=== PATIENT | female | born 1980 | race African-American/Black ===

== ENCOUNTER → 2018-09-19 08:43 | Outpatient (CLI) | payer MEDICARE ==
[~2018-09-19] VITALS: Ht 160 cm; Wt 153.3 kg
[2018-09-19 10:01] VITALS: Ht 160 cm; Wt 153.3 kg
== END | disposition home or self-care (01) ==
LOC: D.FANS 08:43
PROVIDERS: ATTEND Surgery
DX: E66.01 Morbid (severe) obesity due to excess calories (principal)

== ENCOUNTER 2018-10-30 09:34 | Outpatient (CLI) | payer MEDICARE ==
[2018-09-19 10:01] VITALS: BMI 59.8
[2018-11-07 07:25] VITALS: BMI 61.8
== END 2018-10-30 10:33 | disposition home or self-care (01) ==
LOC: D.OPS 09:34
PROVIDERS: ATTEND Surgery
DX: E66.01 Morbid (severe) obesity due to excess calories (principal)

== ENCOUNTER 2018-11-07 05:58 | Day surgery (SDC) | payer MEDICARE ==
[~2018-11-07] VITALS: Ht 157.5 cm; Wt 153.2 kg
[2018-11-07] MEDS ORDERED: ALDACTONE25 MG PO (07:16)
[2018-11-07] MEDS ORDERED: FUROSEMIDE40 MG PO (07:16)
[2018-11-07] MEDS ORDERED: METOPROLOL TART50 MG PO (07:17)
[2018-11-07] MEDS ORDERED: HYDROCODON-ACE1 EA10 PO ×2 (07:17)
[2018-11-07] MEDS ORDERED: NORVASC5 MG PO (07:18)
[2018-11-07] MEDS ORDERED: ZITHROMAX250 MG PO (07:18)
[2018-11-07 07:25] VITALS: BP 168/95; Ht 157.5 cm; Wt 153.2 kg
[2018-11-07 07:36] LABS: HCG URINE NEGATIVE (NEGATIVE)
[2018-11-07] MEDS ORDERED: GLUCOPHAGE1000 MG PO (07:37)
[2018-11-07 07:46] LABS: HEMATOCRIT 36.8 % (36.0-48.0); HEMOGLOBIN 11.6 g/dL (12-16); MCH 23.9 pg (26.0-34.0); MCHC 31.5 g/dL (31.0-37.0); MCV 75.7 fL (80.0-100.0); MEAN PLATELET VOLUME 8.6 fL (7.4-10.4); RBC 4.86 10x6/uL (4.00-5.40); RDW 14.2 % (11.5-14.5); WBC 9.6 10x3/uL (4.8-10.8)
[2018-11-07 07:53] LABS: ANION GAP 9.2 mmol/L (8-16); CALCIUM 9.4 mg/dL (8.5-10.1); CARBON DIOXIDE 31.5 mmol/L (21.0-32.0); CREATININE - SERUM 1.1 mg/dL (0.6-1.3); POTASSIUM - SERUM 3.7 mmol/L (3.5-5.1)
== END 2018-11-07 09:40 | disposition home or self-care (01) ==
LOC: D.OPS 05:58
PROVIDERS: Anesthesiology; ATTEND Surgery
DX: K31.9 Disease of stomach and duodenum, unspecified (principal); K29.70 Gastritis, unspecified, without bleeding; K44.9 Diaphragmatic hernia without obstruction or gangrene; K21.9 Gastro-esophageal reflux disease without esophagitis; E66.01 Morbid (severe) obesity due to excess calories; Z68.44 Body mass index [BMI] 60.0-69.9, adult; Z01.812 Encounter for preprocedural laboratory examination

== ENCOUNTER 2019-01-04 10:28 | Inpatient (IN) | payer MEDICARE ==
[~2019-01-04] VITALS: Ht 157.5 cm; Wt 153.2 kg
[~2019-01-04 10:28] MED LIST: ALDACTONE25 MG PO; FUROSEMIDE40 MG PO; GLUCOPHAGE1000 MG PO; HYDROCODON-ACE1 EA10 PO; METOPROLOL TART50 MG PO; NORVASC5 MG PO; ZITHROMAX250 MG PO
[2019-01-25] MEDS ORDERED: CYCLOBENZAPRINE10 MG PO (08:52)
[2019-01-25 09:37] LABS: HEMOGLOBIN 11.6 g/dL (12-16); MCH 24.1 pg (26.0-34.0); MCHC 32.2 g/dL (31.0-37.0); MCV 74.8 fL (80.0-100.0); MEAN PLATELET VOLUME 8.8 fL (7.4-10.4); RBC 4.81 10x6/uL (4.00-5.40); RDW 14.4 % (11.5-14.5); WBC 11.2 10x3/uL (4.8-10.8)
[2019-01-25 09:38] LABS: ANION GAP 9.7 mmol/L (8-16); CALCIUM 8.8 mg/dL (8.5-10.1); CARBON DIOXIDE 28.4 mmol/L (21.0-32.0); CREATININE - SERUM 1.2 mg/dL (0.6-1.3); POTASSIUM - SERUM 4.1 mmol/L (3.5-5.1)
[2019-01-28] VITALS (10 sets, daily range): BP systolic 120–169; BP diastolic 58–84; Ht 157.5 cm; Wt 153.2 kg
[2019-01-28] MEDS ORDERED: GLIMEPIRIDE2 MG PO (08:44)
[2019-01-28 09:15] LABS: HCG URINE NEGATIVE (NEGATIVE)
--- NOTE | 2019-01-28 14:15 | NUR ---
PATIENT IN BED WITH IV INTACT. NO COMPLAINTS OR SIGNS OF DISTRESS. FAMILY AT BEDSIDE. EATING A FEW ICE CHIPS AT THIS TIME. VS STABLE. SATS UP TO 99 WHILE AWAKE. PATIENT HAS APNEA WHILE SLEEPING. STATES SHE HAS NO PAIN AT THIS TIME. CALL LIGHT WITHIN REACH. BSCDS ON AND WORKING.
--- NOTE | 2019-01-28 15:45 | NUR ---
PATIENT SITTING UP IN CHAIR AT THIS TIME WITH NO COMPLAINTS OR SIGNS OF DISTRESS. STILL SLEEPY. STATES NO PAIN. IV INTACT. FAMILY AT BEDSIDE. VS STABLE. CALL LIGHT WITHIN REACH. LAP INCISIONS CLEAN AND DRY.
--- NOTE | 2019-01-28 17:10 | NUR ---
PATIENT SITTING UP IN CHAIR. DRANK 30 ML OF CHICKEN BROTH AND 30 ML OF APPLE JUICE 30 MINUTES APART WITH NO PROBLEMS. IV INTACT. GAVE PATIENT IS AND EXPLAINED TO USE 10 X'S / HR WHILE AWAKE. PATIENT DEMONSTRATED BACK USE. STATES NO PAIN AT THIS TIME. FAMILY AT BEDSIDE. CALL LIGHT WITHIN REACH.
--- NOTE | 2019-01-28 18:05 | NUR ---
PATIENT TO ROOM AT THIS TIME. VS STABLE. NO COMPLAINTS OR SIGNS OF DISTRESS. STILL TIRED FROM ANESTHESIA. IV INTACT. O2 94 ON 7 L HF NC. WILL CONTINUE TO MONITOR.
--- NOTE | 2019-01-28 18:13 | NUR ---
PATIENT SITTING UP IN CHAIR. WITH NO COMPLAINTS OR SIGNS OF DISTRESS. IV INTACT. CALL LIGHT WITHIN REACH. EYES CLOSED RESTING QUIETLY.
--- NOTE | 2019-01-28 20:00 | NUR ---
ASSESSMENT PER FLOWSHEET. PT SITTING UPRIGHT IN CHAIR AT BEDSIDE. IV PATENT RT AC OF LR AT 100CC'S/HR SITE CLEAR. O2 ON AT HIGH FLOW 7L/M. LAP SITES TO ABDOMEN X5 C/D/I. SCD'S OFF. PT TAKING 30ML FLUID PO Q30 MIN. PT USING IS.
--- NOTE | 2019-01-28 20:30 | NUR ---
AMBULATED IN HALLWAY X3 LAPS TOLERATED WELL.
--- NOTE | 2019-01-28 21:15 | NUR ---
MEDS GIVEN PER MAR.
--- NOTE | 2019-01-28 23:00 | NUR ---
AMBULATED X2 MORE LAPS IN HALLWAY.
[2019-01-29 01:12] VITALS: BP 106/77
[2019-01-29 04:56] VITALS: BP 154/74
[2019-01-29 05:13] LABS: BASOPHILS 0.1 % (0-2); EOSINOPHILS 0.7 % (0-7); HEMATOCRIT 35.7 % (36.0-48.0); HEMOGLOBIN 11.1 g/dL (12-16); IMMATURE GRANULOCYTES 0.4 % (0-5); LYMPHOCYTES 18.8 % (15-50); MCH 23.7 pg (26.0-34.0); MCHC 31.1 g/dL (31.0-37.0); MCV 76.1 fL (80.0-100.0); MEAN PLATELET VOLUME 8.9 fL (7.4-10.4); MONOCYTES 6.6 % (2-11); NEUTROPHILS 73.4 % (40-80); PLATELET COUNT 443 10x3/uL (130-400); RBC 4.69 10x6/uL (4.00-5.40); RDW 14.5 % (11.5-14.5); WBC 10.5 10x3/uL (4.8-10.8)
[2019-01-29 05:44] LABS: ALBUMIN 2.7 g/dL (3.4-5.0); ANION GAP 13.8 mmol/L (8-16); BILIRUBIN - TOTAL 0.22 mg/dL (0.2-1.3); CALCIUM 8.7 mg/dL (8.5-10.1); CARBON DIOXIDE 25.5 mmol/L (21.0-32.0); CREATININE - SERUM 1.3 mg/dL (0.6-1.3); POTASSIUM - SERUM 4.3 mmol/L (3.5-5.1)
--- NOTE | 2019-01-29 08:30 | NUR ---
ASSESSMENT PER FLOW SHEET. PT IS WITHOUT DISTRESS.CALL LIGHT IN REACH.
[2019-01-29 08:31] VITALS: BP 180/97
--- NOTE | 2019-01-29 09:08 | MORECARE ---
CASE MANAGEMENT DISCHARGE SUMMARY PATIENT: SHANTI ARGUETA UNIT: [id number] ADM DATE: 01/28/19 AGE: 38 : 82 SEX: F ROOM/BED: D.2232 AUTHOR: KATHI,DOC PHYSICIAN: REFERRING PHYSICIAN: TAMI ROMERO MD DATE OF SERVICE: 01/29/19 Discharge Plan Patient Name: SHANTI ARGUETA Facility: [facility]:[place] : 1980 Planned Disposition: Home Anticipated Discharge Date: 01/29/19 Discharge Date: Expected LOS: 1 Initial Reviewer: [email or web address] Initial Review Date: 01/28/2019 Generated: 01/29/19 10:07 am Comments DCP- Discharge Planning Updated by [email or web address]: Delaney Bush on 01/29/19 8:[address] DC PLAN: Return home with significant other independently. ANTICIPATED DC NEEDS: Denied dc needs at this time. CM met with patient to complete initial dc planning assessment. CM educated patient on the CM role and verbal consent given by patient to complete assessment. CM verified patient's address, phone number, and emergency contact phone numbers. Patient lives at home with her significant other independently. At discharge patient plans to return home and feels this is a safe discharge. CM discussed availability of home health, rehab services, and medical equipment. Patient denied known discharge needs at this time. Patient reports her mother will transport her home at time of discharge. CM will continue to follow and will assist as needed with dc plans/needs. Delaney Bush RN, [facility] DCPIA - Discharge Planning Initial Assessment Updated by [email or web address]: Delaney Bush on 01/29/19 9:06 am * Is the patient Alert and Oriented? Yes * How many steps to enter\exit or inside your home? None * PCP Dr. Racheal [facility] * [facility] * Preadmission Environment Home with Family * ADLs Independent * Equipment Glucometer * List name and contact numbers for known caregivers / representatives who currently or will assist patient after discharge: Alyssia Argueta - mother - [phone] * Verbal permission to speak to the caregivers and representatives has been obtained from the patient. Yes * Community resources currently utilized None * Additional services required to return to the preadmission environment? No * Can the patient safely return to the preadmission environment? Yes * Has this patient been hospitalized within the prior 30 days at any hospital? No Patient Name: SHANTI ARGUETA Page [id number] at 0908 All edits/amendments must be made on the electronic document DICTATION DATE: 01/29/19906 EVP OF [employer]ODUCTS [employer] FOUNDER: SONAL 01/29/19906 RPT#: [id number] DC DATE: STATUS: ADM IN [facility] [address] [place] [address] END OF REPORT
[2019-01-29] MEDS ORDERED: HYDROCODON-ACE1 EAC7 PO (09:33)
--- NOTE | 2019-01-29 12:00 | NUR ---
WILL DC AFTER MOTHER GETS OFF WORK TODAY. PT STATES SOMETIME AFTER 1500
[2019-01-29 12:27] VITALS: BP 175/85
--- NOTE | 2019-01-29 13:38 | NUR ---
Nutrition follow-up: Received consult for post-bariatric diet instruction. Pt was instructed on pre/post bariatric diet in September 2018. RDN reviewed clear liquid/full liquid diet. Reviewed appropriate liquids and appropriate protein supplements. Answered all pts questions. Pt voices understanding of post-op diet restrictions and progression. Provided pt with printed diet handouts. THank you for the consult.
[2019-01-29 16:37] VITALS: BP 177/95
--- NOTE | 2019-01-30 09:05 | MORECARE ---
CASE MANAGEMENT DISCHARGE SUMMARY PATIENT: SHANTI ARGUETA UNIT: [id number] ADM DATE: 01/28/19 AGE: 38 : 82 SEX: F ROOM/BED: D.2232 AUTHOR: KATHI,DOC PHYSICIAN: REFERRING PHYSICIAN: TAMI ROMERO MD DATE OF SERVICE: 01/30/19 Discharge Plan Patient Name: SHANTI ARGUETA Facility: [facility]:[place] : 1980 Planned Disposition: Home Anticipated Discharge Date: 01/29/19 Discharge Date: 01/29/2019 Expected LOS: 1 Initial Reviewer: [email or web address] Initial Review Date: 01/28/2019 Generated: 01/30/19 10:05 am DCP- Discharge Planning Updated by [email or web address]: Delaney Bush on 01/29/19 8:[address] DC PLAN: Return home with significant other independently. ANTICIPATED DC NEEDS: Denied dc needs at this time. CM met with patient to complete initial dc planning assessment. CM educated patient on the CM role and verbal consent given by patient to complete assessment. CM verified patient's address, phone number, and emergency contact phone numbers. Patient lives at home with her significant other independently. At discharge patient plans to return home and feels this is a safe discharge. CM discussed availability of home health, rehab services, and medical equipment. Patient denied known discharge needs at this time. Patient reports her mother will transport her home at time of discharge. CM will continue to follow and will assist as needed with dc plans/needs. Delaney Bush RN, [facility] DCPIA - Discharge Planning Initial Assessment Updated by [email or web address]: Delaney Bush on 01/29/19 9:06 am * Is the patient Alert and Oriented? Yes * How many steps to enter\exit or inside your home? None * PCP Dr. Racheal Chapa * [facility] * Preadmission Environment Home with Family * ADLs Independent * Equipment Glucometer * List name and contact numbers for known caregivers / representatives who currently or will assist patient after discharge: Alyssia Argueta - mother - [phone] * Verbal permission to speak to the caregivers and representatives has been obtained from the patient. Yes * Community resources currently utilized None * Additional services required to return to the preadmission environment? No * Can the patient safely return to the preadmission environment? Yes * Has this patient been hospitalized within the prior 30 days at any hospital? No Last DP export: 01/29/19 8:08 a Patient Name: SHANTI ARGUETA Page [id number] at 0905 All edits/amendments must be made on the electronic document DICTATION DATE: 01/30/19904 PACKAGING SALES CONSULTANT: SONAL 01/30/19904 RPT#: [id number] DC DATE:01/29/19 STATUS: DIS IN [facility] [address] [place] [address] END OF REPORT
== END 2019-01-29 18:37 | disposition home or self-care (01) | DRG 621 ==
LOC: UNDOADMIN 01-24 09:15 → D.SDCHOLD 01-24 09:15 → D.MS 01-28 13:44
PROVIDERS: Anesthesiology; ADMIT Surgery; ATTEND Surgery
PROC: 0DB64Z3 Excision of Stomach, Percutaneous Endoscopic Approach, Vertical (ICD-10-PCS; principal; 2019-01-28 10:15)
DX: E66.01 Morbid (severe) obesity due to excess calories (principal); Z68.44 Body mass index [BMI] 60.0-69.9, adult; I10 Essential (primary) hypertension; E11.9 Type 2 diabetes mellitus without complications; M19.90 Unspecified osteoarthritis, unspecified site

== ENCOUNTER → 2019-04-30 11:41 | Outpatient (CLI) | payer MEDICARE ==
[2019-01-28 14:37] VITALS: BMI 61.8
[~2019-04-30 11:41] MED LIST changes: +CYCLOBENZAPRINE10 MG PO; +GLIMEPIRIDE2 MG PO; +HYDROCODON-ACE1 EAC7 PO
[2019-04-30 13:47] LABS: BASOPHILS 0.1 % (0-2); HEMATOCRIT 37.8 % (36.0-48.0); HEMOGLOBIN 11.6 g/dL (12-16); IMMATURE GRANULOCYTES 0.3 % (0-5); LYMPHOCYTES 40.8 % (15-50); MCH 23.2 pg (26.0-34.0); MCHC 30.7 g/dL (31.0-37.0); MCV 75.4 fL (80.0-100.0); MONOCYTES 7.1 % (2-11); NEUTROPHILS 47.7 % (40-80); PLATELET COUNT 631 10x3/uL (130-400); RBC 5.01 10x6/uL (4.00-5.40); RDW 16.3 % (11.5-14.5); WBC 7.8 10x3/uL (4.8-10.8)
== END | disposition home or self-care (01) ==
LOC: D.LAB 11:41
PROVIDERS: ATTEND Surgery
DX: E66.01 Morbid (severe) obesity due to excess calories (principal)